=== PATIENT | male | born 1950 | race Two or more races ===

== ENCOUNTER 2019-06-19 19:27 | Emergency (ER) | payer OTHER ==
[~2019-06-19] VITALS: Ht 188 cm; Wt 113.4 kg
[~2019-06-19 19:27] MED LIST: BENICAR5 MG PO; MACROBID 100 M100 MG PO
[2019-06-19] MEDS ORDERED: BENICAR20 MG (19:37)
== END 2019-06-19 21:38 | disposition designated cancer center or children's hospital (05) ==
LOC: ER 19:27 → EDBD 19:37 → ER 19:37 → CPU-OBS 19:37 → ER 21:38
DX: I62.00 Nontraumatic subdural hemorrhage, unspecified (principal); R55 Syncope and collapse; S00.83XA Contusion of other part of head, initial encounter; W17.89XA Other fall from one level to another, initial encounter; Y93.89 Activity, other specified; Y92.89 Other specified places as the place of occurrence of the external cause; Y99.8 Other external cause status
CPT/HCPCS: G0378; G0379; 93005; 70450

== ENCOUNTER 2019-06-20 20:32 | Inpatient (IN) | payer OTHER ==
[~2019-06-20] VITALS: Ht 182.9 cm; Wt 113.4 kg
[~2019-06-20 20:32] MED LIST changes: +BENICAR20 MG
--- NOTE | 2019-06-20 22:30 | NUR ---
SE RECIBE PTE ALERTA ACOMPANADO DE FAMILIAR Y PERSONAL DE AMBULANCIA. PTE REFIERE VENIR POR DOLOR DE PRISCILA, MAREOS Y DEBILIDAD. PTE REFIERE HEMATOMA SUBDURAL. PTE SE MIDEN S/V A PTE Y LUEGO ES ADMITIDO POR DR. ARREDONDO. PTE SE SUBE A PISO DIRECTAMENTE.
[2019-06-21] MEDS ORDERED: BENICAR5 MG PO (13:03)
[2019-06-21] MEDS ORDERED: PNEU16DI2 (13:03)
== END 2019-06-24 13:50 | disposition home or self-care (01) | DRG 84 ==
LOC: ER 20:32 → SURG 21:16 → EDBD 21:16 → SURG 21:16
PROVIDERS: ADMIT Specialist
PROC: 4A12X4Z Monitoring of Cardiac Electrical Activity, External Approach (ICD-10-PCS; 2019-06-20)
PROC: B246ZZZ Ultrasonography of Right and Left Heart (ICD-10-PCS; principal; 2019-06-21)
PROC: BW28ZZZ Computerized Tomography (CT Scan) of Head (ICD-10-PCS; 2019-06-21)
PROC: 3E0F7GC Introduction of Other Therapeutic Substance into Respiratory Tract, Via Natural or Artificial Opening (ICD-10-PCS; 2019-06-24)
DX: S06.5X4A Traumatic subdural hemorrhage with loss of consciousness of 6 hours to 24 hours, initial encounter (principal); I95.2 Hypotension due to drugs; E78.49 Other hyperlipidemia; I10 Essential (primary) hypertension; E66.8 Other obesity; Z74.01 Bed confinement status; Z85.46 Personal history of malignant neoplasm of prostate

== ENCOUNTER 2019-07-02 08:59 | Outpatient (CLI) | payer OTHER ==
[~2019-07-02 08:59] MED LIST changes: +PNEU16DI2
== END 2019-07-02 17:00 | disposition home or self-care (01) ==
LOC: MRI 08:59 → TOM 08:59 → MRI 17:00
DX: S06.369A Traumatic hemorrhage of cerebrum, unspecified, with loss of consciousness of unspecified duration, initial encounter (principal)
CPT/HCPCS: 70551

== ENCOUNTER 2019-08-02 11:28 | Outpatient (CLI) | payer OTHER | END 2019-08-02 17:00 | disposition home or self-care (01) | LOC: TOM 11:28 | DX: S06.369A Traumatic hemorrhage of cerebrum, unspecified, with loss of consciousness of unspecified duration, initial encounter (principal) ==

== ENCOUNTER → 2020-04-21 | Outpatient (CLI) | payer OTHER | END | disposition home or self-care (01) | LOC: LAB 10:56 | PROVIDERS: ATTEND Radiology Diagnostic Radiology | DX: Z03.818 Encounter for observation for suspected exposure to other biological agents ruled out (principal) ==

== ENCOUNTER → 2020-08-08 08:00 | Outpatient (CLI) | payer OTHER | END | disposition home or self-care (01) | LOC: PPH VACUNA 08:00 | DX: Z23 Encounter for immunization (principal) ==

== ENCOUNTER 2020-11-07 10:34 | Outpatient (CLI) | payer OTHER | END 2020-11-07 15:00 | disposition home or self-care (01) | LOC: PPH VACUNA 10:34 | DX: Z23 Encounter for immunization (principal) ==

== ENCOUNTER 2021-01-30 08:12 | Outpatient (CLI) | payer OTHER | END 2021-01-30 15:51 | disposition home or self-care (01) | LOC: LAB 08:12 | DX: C61 Malignant neoplasm of prostate (principal) ==

== ENCOUNTER 2021-01-30 08:30 | Outpatient (CLI) | payer OTHER | END 2021-01-30 08:34 | disposition home or self-care (01) | LOC: RAD 08:30 | PROVIDERS: ATTEND Radiology Diagnostic Radiology | DX: R06.89 Other abnormalities of breathing (principal) ==

== ENCOUNTER → 2021-07-13 15:00 | Outpatient (CLI) | payer OTHER | END | disposition home or self-care (01) | LOC: PPH VACUNA 15:00 | DX: Z23 Encounter for immunization (principal) ==

== ENCOUNTER 2021-08-21 08:00 | Outpatient (CLI) | payer OTHER | END 2021-08-21 08:30 | disposition home or self-care (01) | LOC: PPH VACUNA 08:00 | PROVIDERS: ATTEND Emergency Medicine Pediatric Emergency Medicine | DX: Z23 Encounter for immunization (principal) ==

== ENCOUNTER 2021-11-09 09:46 | Outpatient (CLI) | payer OTHER | END 2021-11-09 10:07 | disposition home or self-care (01) | LOC: LAB 09:46 | PROVIDERS: ATTEND Radiology Diagnostic Radiology | DX: Z03.818 Encounter for observation for suspected exposure to other biological agents ruled out (principal) ==

== ENCOUNTER 2021-11-13 07:51 | Outpatient (CLI) | payer OTHER | END 2021-11-13 08:22 | disposition home or self-care (01) | LOC: LAB 07:51 | PROVIDERS: ATTEND Radiology Diagnostic Radiology | DX: Z20.822 Contact with and (suspected) exposure to COVID-19 (principal) ==

== ENCOUNTER 2022-01-23 10:01 | Outpatient (CLI) | payer OTHER | END 2022-01-23 13:42 | disposition home or self-care (01) | LOC: LAB 10:01 | PROVIDERS: ATTEND Radiology Diagnostic Radiology | DX: E03.9 Hypothyroidism, unspecified (principal); D40.0 Neoplasm of uncertain behavior of prostate; E78.2 Mixed hyperlipidemia; D64.9 Anemia, unspecified; E11.65 Type 2 diabetes mellitus with hyperglycemia ==

== ENCOUNTER 2022-01-24 12:04 | Outpatient (CLI) | payer OTHER | END 2022-01-24 12:20 | disposition home or self-care (01) | LOC: RAD 12:04 | PROVIDERS: ATTEND Radiology Diagnostic Radiology | DX: I10 Essential (primary) hypertension (principal) ==

== ENCOUNTER 2022-01-24 13:00 | Outpatient (CLI) | payer OTHER | END 2022-01-24 13:05 | disposition home or self-care (01) | LOC: NUCLEAR 13:00 | PROVIDERS: ATTEND Specialist | DX: I50.1 Left ventricular failure, unspecified (principal); I11.9 Hypertensive heart disease without heart failure ==

== ENCOUNTER 2022-02-25 08:00 | Outpatient (CLI) | payer OTHER | END 2022-02-25 08:30 | disposition home or self-care (01) | LOC: PPH VACUNA 08:00 | PROVIDERS: ATTEND Emergency Medicine Pediatric Emergency Medicine | DX: Z23 Encounter for immunization (principal) ==

== ENCOUNTER 2022-03-29 08:04 | Outpatient (CLI) | payer OTHER | END 2022-03-29 09:02 | disposition home or self-care (01) | LOC: LAB 08:04 | PROVIDERS: ATTEND Radiology Diagnostic Radiology | DX: U07.1 COVID-19 (principal) ==

== ENCOUNTER 2022-06-12 16:01 | Emergency (ER) | payer OTHER ==
[~2022-06-12] VITALS: Ht 182.9 cm; Wt 113.4 kg
[2022-06-12] MEDS ORDERED: NORVASC5 MG PO (16:07)
[2022-06-12] MEDS ORDERED: DOXYCYCLINE IR-40 MG PO (16:08)
== END 2022-06-12 17:57 | disposition home or self-care (01) ==
LOC: ER 16:01
DX: R07.89 Other chest pain (principal); I10 Essential (primary) hypertension

== ENCOUNTER → 2022-06-14 07:39 | Outpatient (CLI) | payer OTHER ==
[~2022-06-14 07:39] MED LIST changes: +DOXYCYCLINE IR-40 MG PO; +NORVASC5 MG PO
== END | disposition home or self-care (01) ==
LOC: NUCLEAR 07:00
PROVIDERS: ATTEND Radiology Diagnostic Radiology
DX: I20.8 Other forms of angina pectoris (principal)
CPT/HCPCS: 78452; 93017; A9500

== ENCOUNTER 2022-07-18 16:54 | Emergency (ER) | payer OTHER ==
[~2022-07-18] VITALS: Ht 182.9 cm; Wt 113.4 kg
== END 2022-07-18 20:12 | disposition home or self-care (01) ==
LOC: ER 16:54
DX: S61.431A Puncture wound without foreign body of right hand, initial encounter (principal); W60.XXXA Contact with nonvenomous plant thorns and spines and sharp leaves, initial encounter; Y93.9 Activity, unspecified; Y92.9 Unspecified place or not applicable; Y99.9 Unspecified external cause status

== ENCOUNTER 2022-08-07 08:00 | Outpatient (CLI) | payer OTHER | END 2022-08-07 08:05 | disposition home or self-care (01) | LOC: PPH VACUNA 08:00 | PROVIDERS: ATTEND Emergency Medicine Pediatric Emergency Medicine | DX: Z23 Encounter for immunization (principal) ==

== ENCOUNTER 2022-08-07 10:45 | Outpatient (CLI) | payer OTHER | END 2022-08-07 10:55 | disposition home or self-care (01) | LOC: PPH VACUNA 10:45 | PROVIDERS: ATTEND Emergency Medicine Pediatric Emergency Medicine | DX: Z23 Encounter for immunization (principal) ==

== ENCOUNTER 2023-01-29 14:56 | Outpatient (CLI) | payer OTHER | END 2023-01-29 15:05 | disposition home or self-care (01) | LOC: LAB 14:56 | PROVIDERS: ATTEND Internal Medicine Cardiovascular Disease | DX: I11.9 Hypertensive heart disease without heart failure (principal); E78.2 Mixed hyperlipidemia ==

== ENCOUNTER 2023-08-15 10:30 | Outpatient (CLI) | payer OTHER | END 2023-08-15 10:40 | disposition home or self-care (01) | LOC: PPH VACUNA 10:30 | PROVIDERS: ATTEND Emergency Medicine Pediatric Emergency Medicine | DX: Z23 Encounter for immunization (principal) | CPT/HCPCS: 90686; G0008 ==

== ENCOUNTER 2024-05-26 05:55 | Day surgery (SDC) | payer OTHER ==
[2024-05-26] MEDS ORDERED: NEOMYCIN/BACITRACIN/POLYMYXINB 14 G TUBE TOP ONE (10:15)
[2024-05-26] MEDS ORDERED: CEFAZOLIN SODIUM 1,000 MG VIAL IV SCH (10:15)
== END 2024-05-26 12:20 | disposition home or self-care (01) ==
LOC: CIR.AMB 05:55
PROVIDERS: ATTEND Surgery Surgery of the Hand
DX: S61.012A Laceration without foreign body of left thumb without damage to nail, initial encounter (principal); I10 Essential (primary) hypertension

== ENCOUNTER 2024-11-08 09:38 | Outpatient (CLI) | payer OTHER ==
[2024-11-08 11:21] LABS: HEMATOCRIT 44.7 % (39.0-48.0); HEMOGLOBIN 14.7 g/dL (13-16.00); MEAN CELL VOLUME 93.7 fL (80.0-100.00); MEAN CORPUSCULAR HEMOGLOBIN 30.8 pg (27.00-32.0); MEAN CORPUSCULAR HGB CONC 32.9 g/dl (32.0-36.0); PLATELET COUNT 202 K/uL (150-450); RED BLOOD COUNT 4.77 M/uL (4.00-6.00); RED CELL DISTRIBUTION WIDTH 14.3 % (11.5-14.5)
[2024-11-08 11:53] LABS: CHOLESTEROL 204 mg/dL (0-200); HDL 102 mg/dl (40-60); LDL 70 mg/dl (0-130); TRIGLYCERIDES 162 mg/dL (0-150); VLDL 32 (0-39)
[2024-11-08 11:54] LABS: PROSTATIC SPECIFIC ANTIGEN < 0.010 NG/ML (0.010-4.00)
[2024-11-08 13:01] LABS: ALBUMIN 4.2 gm/dL (3.4-5.0); BILIRUBIN TOTAL 0.84 mg/dL (0.3-1.2); CALCIUM 9.8 mg/dL (8.5-10.1); CREATININE SERUM 1.1 mg/dL (0.70-1.30); GFR 65.8; POTASSIUM 4.72 mEq/L (3.5-5.1); TOTAL PROTEIN 7.2 gm/dL (6.4-8.2)
== END 2024-11-08 10:09 | disposition home or self-care (01) ==
LOC: LAB 09:38
PROVIDERS: ATTEND Radiology Diagnostic Radiology
DX: Z13.9 Encounter for screening, unspecified (principal); Z00.00 Encounter for general adult medical examination without abnormal findings

== ENCOUNTER 2025-02-16 07:18 | Outpatient (CLI) | payer OTHER | END 2025-02-16 07:20 | disposition home or self-care (01) | LOC: NUCLEAR 07:18 | PROVIDERS: ATTEND Internal Medicine | DX: I10 Essential (primary) hypertension (principal) ==

== ENCOUNTER 2025-03-14 09:29 | Outpatient (CLI) | payer OTHER | END 2025-03-14 14:59 | disposition home or self-care (01) | LOC: SONOGRAMA 09:29 | DX: E04.2 Nontoxic multinodular goiter (principal) ==